=== PATIENT | female | born 1950 | race Caucasian/White ===

== ENCOUNTER 2018-03-17 09:40 | Outpatient (CLI) | payer MEDICARE, OTHER | END 2018-03-17 09:41 | disposition home or self-care (01) | LOC: BICMAMMO 09:40 | PROVIDERS: ATTEND Obstetrics & Gynecology | DX: Z12.31 Encounter for screening mammogram for malignant neoplasm of breast (principal); M81.0 Age-related osteoporosis without current pathological fracture; R92.1 Mammographic calcification found on diagnostic imaging of breast | CPT/HCPCS: 77063; 77067; 77080 ==

== ENCOUNTER 2020-05-03 08:30 | Outpatient (CLI) | payer MEDICARE, OTHER ==
--- NOTE | 2020-05-03 09:09 | BD ---
EXAM: Bone densitometry using DEXA HISTORY: 69 yo female. Screening for postmenopausal osteoporosis FINDINGS: L1--bone mineral density 0.815 g/sq cm; T score -1.6 ; Z score 0.2 L2--bone mineral density 0.924 g/sq cm; T score -0.9 ; Z score -1.1 L3--bone mineral density 0.860 g/sq cm; T score -2.0 ; Z score 0.1 L4--bone mineral density 0.795 g/sq cm; T score -2.4 ; Z score -0.2 Total L1-L4--bone mineral density 0.845 g/sq cm; T score -1.8 ; Z score 0.2 Left femoral neck--bone mineral density0.554; T score -2.7 ; Z score -0.9 Total proximal left femur--bone mineral density 0.708; T score -1.9 ; Z score -0.5 IMPRESSION: Osteoporosis
== END 2020-05-03 08:31 | disposition home or self-care (01) ==
LOC: BICMAMMO 08:30
PROVIDERS: ATTEND Obstetrics & Gynecology
DX: M81.0 Age-related osteoporosis without current pathological fracture (principal)
CPT/HCPCS: 77080

== ENCOUNTER 2020-09-30 21:35 | Inpatient (IN) | payer MEDICARE, OTHER ==
[2020-09-30 22:29] LABS: #Basophils 0.1 thou/uL (0.0-0.2); #Eosinphils 0.2 thou/uL (0.0-0.7); #Lymphocytes 1.7 thou/uL (1.20-3.40); #Monocytes 0.6 thou/uL (0.11-0.59); #Neutrophils 4.4 thou/uL (1.40-6.50); %Basophils 1.2 % (0.0-1.0); %Eosinophils 2.8 % (0.0-10.0); %Lymphocytes 25.1 % (21.0-51.0); Hemoglobin 12.1 g/dL (12.0-16.0); Mean Corpuscular HGB CONC 33.2 g/dL (32.0-36.0); Mean Corpuscular Hemoglobin 32.3 pg (27.0-31.0); Mean Corpuscular Volume 97.3 fL (78.0-98.0); Mean Platelet Volume 6.9 fL (7.4-10.4); Platelet Count 173 thou/uL (130-400); RBC Distribution Width 12.6 % (11.5-14.5); Red Blood Cell (RBC) Count 3.74 mill/uL (4.20-5.40); White Blood Cell (WBC) Count 6.9 thou/uL (4.8-10.8)
[2020-09-30] MEDS ORDERED: Morphine 4 MG/ML VIAL ONE (23:08)
[2020-09-30 23:15] LABS: Albumin 4.4 g/dL (3.4-4.8)
[2020-09-30 23:16] LABS: Chloride 110 mmol/L (98-107); Potassium 4.2 mmol/L (3.5-5.1); Sodium 143 mmol/L (136-145)
[2020-09-30 23:17] LABS: Calcium 8.9 mg/dL (7.8-10.44); Glucose 100 mg/dL (80-115)
[2020-09-30 23:18] LABS: Globulin 2.8 g/dL (2.4-3.5); Protein, Total 7.2 g/dL (5.8-8.1)
[2020-09-30 23:19] LABS: Anion Gap 19 mmol/L (10-20); Bilirubin, Total 0.2 mg/dL (0.2-1.2); Carbon Dioxide 18 mmol/L (23-31)
[2020-09-30 23:20] LABS: Alkaline Phosphatase 62 U/L (40-110); Phosphorus 4.3 mg/dL (2.3-4.7)
[2020-09-30 23:21] LABS: BUN (Urea Nitrogen) 19 mg/dL (9.8-20.1); Calc. Creatinine Clearance 0 mL/min (70-130)
[2020-09-30 23:22] LABS: AST (SGOT) 18 U/L (5-34)
[2020-09-30 23:23] LABS: ALT (SGPT) 10 U/L (8-55); Magnesium 4.1 mg/dL (1.6-2.6)
[2020-10-01 00:06] VITALS: BMI 20.7
[2020-10-01] MEDS ORDERED: Morphine 2 MG/ML VIAL SLOW IVP PRN ×2 (00:12→06:25)
[2020-10-01] MEDS ORDERED: Acetaminophen 325 MG TAB PO PRN (00:15)
[2020-10-01] MEDS ORDERED: Ondansetron PF 4 MG/2 ML Vial IVP PRN (00:15)
[2020-10-01] MEDS ORDERED: Dextrose 5 % And 0.9 % NaCl 1,000 ML IV SCH (00:15)
[2020-10-01] MEDS ORDERED: Ondansetron ODT 4 MG TAB SL PRN (00:15)
[2020-10-01] MEDS ORDERED: Ketorolac Tromethamine 30 MG/ML VIAL IVP PRN ×2 (00:41→15:24)
[2020-10-01] MEDS: Sodium Chloride 0.9% 1,000 ML IV SCH ×3 (00:46→22:37)
[2020-10-01 04:16] LABS: SARS-CoV-2 PCR by NAA Not Detected (NotDetected)
[2020-10-01] MEDS ORDERED: Ondansetron ODT 4 MG TAB PO PRN (06:25)
[2020-10-01] MEDS ORDERED: Dextrose 50% Abboject 50 ML SYRINGE SLOW IVP PRN (06:25)
[2020-10-01] MEDS ORDERED: hydrALAZINE 20 MG/ML VIAL SLOW IVP PRN (06:25)
[2020-10-01] MEDS ORDERED: Dextrose 5% in Water 1,000 ML IV PRN (06:25)
[2020-10-01] MEDS ORDERED: traMADol HCl 50 MG TAB PO PRN (06:31)
[2020-10-01] MEDS ORDERED: Cyclobenzaprine 10 MG TAB PO PRN (06:31)
[2020-10-01] MEDS ORDERED: traMADol HCl 50 MG TAB PO SCH (06:45)
[2020-10-01] MEDS ORDERED: Acetaminophen 500 MG TAB PO SCH (06:45)
[2020-10-01] MEDS ORDERED: CEFAZOLIN 2 GM in Premix Bag 1 BAG IVPB SCH (07:15)
[2020-10-01] MEDS: Senokot S 8.6-50 MG TAB PO SCH ×2 (08:20→19:17)
[2020-10-01] MEDS ORDERED: Famotidine 20 MG TAB PO SCH (09:00)
[2020-10-01] MEDS ORDERED: Polyethylene Glycol 3350 17 GM Packet PO SCH (09:00)
[2020-10-01] MEDS ORDERED: PROPOFOL 200 MG/20 ML VIAL ONE (09:58)
[2020-10-01] MEDS ORDERED: Ondansetron PF 4 MG/2 ML Vial ONE (09:58)
[2020-10-01] MEDS ORDERED: Dexamethasone 20 MG/5 ML VIAL ONE (09:58)
[2020-10-01] MEDS ORDERED: ePHEDrine 50 MG/ML VIAL ONE (09:58)
[2020-10-01] MEDS ORDERED: Fentanyl 100 MCG/2 ML VIAL ONE (13:53)
[2020-10-01] MEDS ORDERED: Ondansetron HCl/PF 4 MG/2 ML Vial IVP PRN (15:24)
[2020-10-01] MEDS: traMADol HCl 50 MG TAB PO SCH ×2 (17:16→17:18)
[2020-10-01] MEDS: Acetaminophen 500 MG TAB PO SCH ×2 (17:17→17:18)
[2020-10-01] MEDS: CEFAZOLIN 2 GM in Premix Bag 1 BAG IVPB SCH (22:37)
[2020-10-02] MEDS: Acetaminophen 500 MG TAB PO SCH ×5 (00:03→23:34)
[2020-10-02] MEDS: traMADol HCl 50 MG TAB PO SCH ×5 (00:03→23:35)
[2020-10-02] MEDS: CEFAZOLIN 2 GM in Premix Bag 1 BAG IVPB SCH ×2 (05:08→14:16)
[2020-10-02 06:18] LABS: #Lymphocytes 1.1 thou/uL (1.20-3.40); #Monocytes 0.7 thou/uL (0.11-0.59); #Neutrophils 3.8 thou/uL (1.40-6.50); %Basophils 0.6 % (0.0-1.0); %Eosinophils 0.8 % (0.0-10.0); %Lymphocytes 19.1 % (21.0-51.0); %Monocytes 11.6 % (0.0-10.0); %Neutrophils 67.8 % (42.0-75.0); Hemoglobin 8.6 g/dL (12.0-16.0); Mean Corpuscular Hemoglobin 32.2 pg (27.0-31.0); Mean Corpuscular Volume 97.6 fL (78.0-98.0); Platelet Count 134 thou/uL (130-400); RBC Distribution Width 12.3 % (11.5-14.5); Red Blood Cell (RBC) Count 2.68 mill/uL (4.20-5.40); White Blood Cell (WBC) Count 5.6 thou/uL (4.8-10.8)
[2020-10-02 06:25] LABS: Anion Gap 11 mmol/L (10-20); BUN (Urea Nitrogen) 9 mg/dL (9.8-20.1); Calc. Creatinine Clearance 67 mL/min (70-130); Carbon Dioxide 21 mmol/L (23-31); Chloride 112 mmol/L (98-107); Phosphorus 2.7 mg/dL (2.3-4.7); Potassium 3.8 mmol/L (3.5-5.1); Sodium 140 mmol/L (136-145)
[2020-10-02 06:26] LABS: Calcium 7.6 mg/dL (7.8-10.44); Glucose 99 mg/dL (80-115); Magnesium 1.7 mg/dL (1.6-2.6)
[2020-10-02] MEDS ORDERED: Magnesium Sulfate 2 GM in Sodium Chloride 0.9% 100 ML IV SCH (08:00)
[2020-10-02] MEDS ORDERED: Potassium Phosphate 15 MMOL in Sodium Chloride 0.9% 250 ML 250 ML IVPB SCH (08:00)
[2020-10-02] MEDS ORDERED: Potassium Phosphate 15 MMOL, Magnesium Sulfate 2 GM in Sodium Chloride 0.9% 250 ML 250 ML IVPB SCH (08:15)
[2020-10-02] MEDS: Ferrous Sulfate 325 MG TAB PO SCH ×2 (09:01→21:10)
[2020-10-02] MEDS: Ascorbic Acid 500 mg Chewable Tablet PO SCH ×2 (09:02→21:10)
[2020-10-02] MEDS: Sodium Chloride 0.9% 1,000 ML IV SCH ×2 (09:05→18:37)
[2020-10-03] MEDS: Sodium Chloride 0.9% 1,000 ML IV SCH (02:40)
[2020-10-03 05:19] LABS: #Eosinphils 0.2 thou/uL (0.0-0.7); #Lymphocytes 1.1 thou/uL (1.20-3.40); #Monocytes 0.6 thou/uL (0.11-0.59); #Neutrophils 3.8 thou/uL (1.40-6.50); %Basophils 0.4 % (0.0-1.0); %Eosinophils 2.8 % (0.0-10.0); %Lymphocytes 19.1 % (21.0-51.0); %Monocytes 10.7 % (0.0-10.0); Hemoglobin 7.8 g/dL (12.0-16.0); Mean Corpuscular HGB CONC 33.7 g/dL (32.0-36.0); Mean Corpuscular Hemoglobin 32.9 pg (27.0-31.0); Mean Corpuscular Volume 97.4 fL (78.0-98.0); Mean Platelet Volume 7.5 fL (7.4-10.4); Platelet Count 136 thou/uL (130-400); RBC Distribution Width 12.4 % (11.5-14.5); Red Blood Cell (RBC) Count 2.38 mill/uL (4.20-5.40); White Blood Cell (WBC) Count 5.7 thou/uL (4.8-10.8)
[2020-10-03] MEDS: Acetaminophen 500 MG TAB PO SCH ×2 (05:19→12:41)
[2020-10-03 05:20] LABS: Hemoglobin 7.6 g/dL (12.0-16.0); Mean Corpuscular Hemoglobin 33.2 pg (27.0-31.0); Mean Corpuscular Volume 97.7 fL (78.0-98.0); Mean Platelet Volume 7.3 fL (7.4-10.4); Platelet Count 136 thou/uL (130-400); RBC Distribution Width 12.3 % (11.5-14.5); White Blood Cell (WBC) Count 5.9 thou/uL (4.8-10.8)
[2020-10-03] MEDS: traMADol HCl 50 MG TAB PO SCH ×2 (05:20→12:43)
[2020-10-03] MEDS ORDERED: Ascorbic Acid 500 mg Chewable Tablet PO SCH (08:00)
[2020-10-03] MEDS: Ferrous Sulfate 325 MG TAB PO SCH (08:58)
[2020-10-03] MEDS: Ascorbic Acid 500 mg Chewable Tablet PO SCH (08:59)
[2020-10-03 11:45] VITALS: BP 123/84; TEMP 98.7
[2020-10-03] MEDS ORDERED: Aspirin 81 mg Enteric Coated Tablet PO SCH (21:00)
== END 2020-10-03 15:25 | disposition home health service (06) | DRG 482 ==
LOC: ERS 21:35 → SURG B 22:33
PROVIDERS: ADMIT Surgery; ATTEND Surgery
PROC: 0QS806Z Reposition Right Femoral Shaft with Intramedullary Internal Fixation Device, Open Approach (ICD-10-PCS; principal; 2020-10-01)
DX: M84.451A Pathological fracture, right femur, initial encounter for fracture (principal); W18.30XA Fall on same level, unspecified, initial encounter; F41.9 Anxiety disorder, unspecified; F32.9 Major depressive disorder, single episode, unspecified; D64.9 Anemia, unspecified; Z90.710 Acquired absence of both cervix and uterus
CPT/HCPCS: 36415; 71045; 76000; 80048; 80053; 83735; 84100; 84484; 85025; 85027; 86850; 86900; 86901; 87635; 93005; 96374; C1713; J0690; J1100; J2270; J2405; J2704; J3010; J3475; J3490; J7050; U0003; U0005

== ENCOUNTER 2021-05-27 14:29 | Outpatient (CLI) | payer MEDICARE, OTHER | END 2021-05-27 14:30 | disposition home or self-care (01) | LOC: BICMAMMO 14:29 | PROVIDERS: ATTEND Obstetrics & Gynecology | DX: Z12.31 Encounter for screening mammogram for malignant neoplasm of breast (principal); M81.0 Age-related osteoporosis without current pathological fracture | CPT/HCPCS: 77063; 77067; 77080 ==

== ENCOUNTER 2025-06-28 15:24 | Outpatient (CLI) | payer MEDICARE, OTHER | END 2025-06-28 15:25 | disposition home or self-care (01) | LOC: BICMAMMO 15:24 | PROVIDERS: ATTEND Internal Medicine | DX: Z12.31 Encounter for screening mammogram for malignant neoplasm of breast (principal) | CPT/HCPCS: 77063; 77067 ==